=== PATIENT | female | born 1940 | race Caucasian/White ===

== ENCOUNTER 2023-08-11 11:50 | Outpatient (CLI) | payer MEDICARE, OTHER | END 2023-08-11 11:51 | disposition home or self-care (01) | LOC: CSHMAMMO 11:50 | PROVIDERS: ATTEND Family Medicine | DX: Z12.31 Encounter for screening mammogram for malignant neoplasm of breast (principal); Z13.820 Encounter for screening for osteoporosis; M85.851 Other specified disorders of bone density and structure, right thigh | CPT/HCPCS: 77063; 77067; 77080 ==